=== PATIENT | female | born 1995 | race Caucasian/White ===

== ENCOUNTER 2017-01-26 14:43 | Emergency (ER) | payer BC ==
--- NOTE | 2017-01-26 15:32 | ER Document Report ---
ED Medical Screen (RME) - General Chief Complaint: Chest Pain Stated Complaint: CHEST PAIN Mode of Arrival: Ambulatory Information source: Patient TRAVEL OUTSIDE OF THE [place] IN LAST 30 DAYS: No - HPI Onset: This afternoon Onset/Duration: Sudden Quality of pain: Sharp Severity: Moderate Associated Symptoms: Chest pain, Nausea. denies: Chills, Cough (productive), Cough (nonproductive), Dizzy/lightheaded, Sweating Exacerbated by: Other - Laying back Relieved by: Denies Notes: 01/26/17 15:31 Patient is here with complaints of chest pain. The pain started suddenly this afternoon. It was sharp in nature. Pain is worse when she lays back. The pain was worse with deep breathing but this has since resolved. She denies any medical problems. She is a non-smoker. She is on control and recently had a 7 [address] ride a few days ago. She denies any leg pain or swelling. Lungs are clear and equal at this time. She is in no respiratory distress. Dad has a history of spontaneous pneumothorax with prominent blebs. - Related Data Allergies/Adverse Reactions: No Known Allergies Allergy (Verified 01/26/17 14:50) Past Medical History - Social History Chew tobacco use (# tins/day): No Frequency of alcohol use: None Drug Abuse: None - Past Medical History Cardiac Medical History: Denies: Hx Coronary Artery Disease, Hx Heart Attack, Hx Hypertension Pulmonary Medical History: Denies: Hx Asthma, Hx Bronchitis, Hx COPD, Hx Pneumonia Neurological Medical History: Denies: Hx Cerebrovascular Accident, Hx Seizures Endocrine Medical History: Reports: Hx Hypothyroidism. Denies: Hx Diabetes Mellitus Type 1, Hx Diabetes Mellitus Type 2 Renal/ Medical History: Denies: Hx Peritoneal Dialysis Musculoskeltal Medical History: Denies Hx Arthritis Psychiatric Medical History: Reports: Hx Anxiety, Hx Depression Surgical Hx: Negative Past Surgical History: Denies: Hx Hysterectomy, Hx Pacemaker - Immunizations Immunizations up to date: Yes Hx Diphtheria, Pertussis, Tetanus Vaccination: Yes Physical Exam - Vital signs Vitals: Temp Pulse Resp BP Pulse Ox 98.4 F 74 20 121/63 100 01/26/17 14:51 01/26/17 14:51 01/26/17 14:51 01/26/17 14:51 01/26/17 14:51 Course - Vital Signs Vital signs: Temp Pulse Resp BP Pulse Ox 98.4 F 74 20 121/63 100 01/26/17 14:51 01/26/17 14:51 01/26/17 14:51 01/26/17 14:51 01/26/17 14:51
--- NOTE | 2017-01-26 16:20 | RADIOLOGY REPORT (SQ) ---
EXAM DESCRIPTION: CHEST PA/LAT COMPLETED DATE/TIME: 01/26/2017 4:06 pm REASON FOR STUDY: CP COMPARISON: AP chest 02/24/2012 EXAM PARAMETERS: NUMBER OF VIEWS: two views TECHNIQUE: Digital Frontal and Lateral radiographic views of the chest acquired. RADIATION DOSE: NA LIMITATIONS: none FINDINGS: LUNGS AND PLEURA: No opacities, masses or pneumothorax. No pleural effusion. MEDIASTINUM AND HILAR STRUCTURES: No masses or contour abnormalities. HEART AND VASCULAR STRUCTURES: Heart normal size. No evidence for failure. BONES: No acute findings. HARDWARE: None in the chest. OTHER: No other significant finding. IMPRESSION: NO SIGNIFICANT RADIOGRAPHIC FINDING IN THE CHEST. TECHNICAL DOCUMENTATION: JOB ID: [id number] [employer]- All Rights Reserved
[2017-01-26 17:16] LABS: ABSOLUTE BASOPHILS # (AUTO) 0.1 10^3/uL (0.0-0.2); ABSOLUTE LYMPHOCYTES (AUTO) 2.5 10^3/uL (0.5-4.7); ABSOLUTE MONOCYTES (AUTO) 0.4 10^3/uL (0.1-1.4); ABSOLUTE NEUT (AUTO) 5.4 10^3/uL (1.7-8.2); BASOPHILS % (AUTO) 0.6 % (0-2); EOSINOPHILS % (AUTO) 0.4 % (0-6); HEMATOCRIT 38.9 % (36.0-47.0); HEMOGLOBIN 12.8 g/dL (12.0-15.5); HGB HCT DIFFERENCE -0.5; LYMPHOCYTES % (AUTO) 29.5 % (13-45); MEAN CORPUSCULAR HEMOGLOBIN 27.3 pg (27.0-33.4); MEAN CORPUSCULAR HGB CONC 33.1 g/dL (32.0-36.0); MEAN CORPUSCULAR VOLUME 82 fl (80-97); MONOCYTES % (AUTO) 4.3 % (3-13); RED BLOOD COUNT 4.71 10^6/uL (3.72-5.28); RED CELL DISTRIBUTION WIDTH 13.5 % (11.5-14.0); SEGMENTED NEUTROPHILS % (AUTO) 65.2 % (42-78); WHITE BLOOD COUNT 8.4 10^3/uL (4.0-10.5)
[2017-01-26 17:40] LABS: ALANINE AMINOTRANSFERASE 30 U/L (9-52); ALBUMIN 4.8 g/dL (3.5-5.0); ALKALINE PHOSPHATASE 49 U/L (38-126); ANION GAP 14 (5-19); ASPARTATE AMINO TRANSFERASE 20 U/L (14-36); BILIRUBIN,DIRECT 0.4 mg/dL (0.0-0.4); BILIRUBIN,TOTAL 1.4 mg/dL (0.2-1.3); BLOOD UREA NITROGEN 12 mg/dL (7-20); CALCIUM 10.3 mg/dL (8.4-10.2); CARBON DIOXIDE 24 mmol/L (22-30); CHLORIDE 106 mmol/L (98-107); CREATINE KINASE 116 U/L (30-135); GLUCOSE 74 mg/dL (75-110); POTASSIUM 4.4 mmol/L (3.6-5.0); SODIUM 143.9 mmol/L (137-145); TOTAL PROTEIN 7.9 g/dL (6.3-8.2)
[2017-01-26 17:52] LABS: CREATINE KINASE MB 0.78 ng/mL (<4.55)
[2017-01-26 17:54] LABS: TROPONIN I < 0.012 ng/mL
--- NOTE | 2017-01-26 18:29 | EKG REPORT ---
SEVERITY:- NORMAL ECG - SINUS RHYTHM : Confirmed by: Troy Girard 26-Jan-2017 18:28:13
--- NOTE | 2017-01-26 19:01 | ER Document Report ---
ED Cardiac - General Chief Complaint: Chest Pain Stated Complaint: CHEST PAIN Mode of Arrival: Ambulatory Information source: Patient TRAVEL OUTSIDE OF THE [place] IN LAST 30 DAYS: No - HPI Patient complains to provider of: Chest pain Was the onset of pain: Sudden Is the pain a: New problem Chest pain location: Pleuritic Quality of pain: Constant, Moderate, Sharp Chest pain radiation location: None Severity now: Mild Severity at worst: Moderate Cardiac risk factors: None Positive cardiac history: No Associated symptoms: denies: Abdominal pain, Anxiety, Back pain, Cool extremities, Diaphoresis, Dizziness, Edema, Fatigue, Fever/chills, Nausea/ vomiting, Neck pain, Palpitations, Rash, Shortness of breath Exacerbated by: Deep breaths Relieved by: Rest Notes: Patient arrives with complaints of chest pain. This is a 21-year-old female who is healthy. Started having mid chest pain that was sharp in nature few hours prior to arrival. The patient denies any shortness of breath. She denies any leg pain or leg swelling. Patient denies any hypertension, diabetes , high cholesterol, smoking, drug use, cardiac history, family history. She is on control and recently drove to and from [place]. She denies any history of DVT or PE. Mother has a history of blebs with spontaneous pneumo's. Patient states the pain has resolved some. She denies any fever or cough. No rash. No injury. She denies any abdominal pain. No nausea vomiting diarrhea. She has no other complaints at this time. - Related Data Allergies/Adverse Reactions: No Known Allergies Allergy (Verified 01/26/17 14:50) Past Medical History - General Information source: Patient - Social History Smoking Status: Never Smoker Chew tobacco use (# tins/day): No Frequency of alcohol use: None Drug Abuse: None Family History: Reviewed & Not Pertinent Patient has suicidal ideation: No Patient has homicidal ideation: No - Past Medical History Cardiac Medical History: Denies: Hx Coronary Artery Disease, Hx Heart Attack, Hx Hypertension Pulmonary Medical History: Denies: Hx Asthma, Hx Bronchitis, Hx COPD, Hx Pneumonia Neurological Medical History: Denies: Hx Cerebrovascular Accident, Hx Seizures Endocrine Medical History: Reports: Hx Hypothyroidism. Denies: Hx Diabetes Mellitus Type 1, Hx Diabetes Mellitus Type 2 Renal/ Medical History: Denies: Hx Peritoneal Dialysis Musculoskeltal Medical History: Denies Hx Arthritis Psychiatric Medical History: Reports: Hx Anxiety, Hx Depression Surgical Hx: Negative Past Surgical History: Denies: Hx Hysterectomy, Hx Pacemaker - Immunizations Immunizations up to date: Yes Hx Diphtheria, Pertussis, Tetanus Vaccination: Yes Review of Systems - Review of Systems -: Yes All other systems reviewed and negative Physical Exam - Vital signs Vitals: Temp Pulse Resp BP Pulse Ox 98.4 F 74 20 121/63 100 01/26/17 14:51 01/26/17 14:51 01/26/17 14:51 01/26/17 14:51 01/26/17 14:51 - Notes Notes: GENERAL: alert, cooperative, nontoxic, no distress. HEAD: normocephalic, atraumatic EYES: conjunctiva pink without discharge, no external redness or swelling. EARS: no external swelling, no external redness NOSE: atraumatic, no external swelling MOUTH/THROAT: mucous membranes moist and pink, posterior pharynx without erythema, swelling, exudate. No trismus or drooling. NECK: soft, supple, full range of motion, no meningismus. CHEST: no distress, lungs clear and equal throughout. No wheezing, rales, rhonchi. CARDIAC: regular rate and rhythm, no murmur, normal capillary refill, normal pulses. No peripheral edema noted. ABDOMEN: Soft, nontender. BACK: full range of motion, no CVA tenderness. EXTREMITIES: full range of motion of all extremities. No redness, no swelling. NEURO: alert and oriented x 3, no focal deficits, full range of motion of all extremities. PYSCH: appropriate mood, affect. Patient is cooperative. SKIN: pink, warm, dry, no rash. Course - Re-evaluation Re-evalutation: 01/26/17 19:02 Patient is feeling better at this time. The patient has a heart score of 0 making risk for MACE of 1.7%. Patient had a recent trip is on control but is a non-smoker. She has no leg pain or swelling and no sign of DVT. D- dimer is negative. And this low risk patient with a negative d-dimer, PE is very unlikely. Her symptoms are very atypical for ACS. Initial troponin is negative. EKG shows normal sinus rhythm with no acute ischemic changes. We will repeat a 3 hour troponin, if negative the patient will be discharged home. Chest x-ray shows no acute abnormality including pneumothorax. 01/26/17 20:16 Patient continues to be stable. Repeat troponin remains negative. ACS very unlikely in this patient. Heart score 0. D-dimer negative for PE. Chest x- ray shows no pneumonia or pneumothorax. EKG shows no ischemic changes and no signs of pericarditis. Patient will be discharged home with NSAIDs. Follow-up with her doctor at the next available appointment for recheck. Follow-up sooner for increased pain, fever, difficulty breathing, or any further concerns. 01/26/17 20:18 The patient is noted to have elevated blood pressure during today's emergency department visit. The patient was informed of this finding. The patient was instructed that this may be related to pre-hypertension and requires further evaluation with a primary care provider. The patient has no hypertensive symptoms at this time. The patient's emergency department workup and current diagnosis were explained to the patient and or family. Follow-up instructions were provided. Medications if prescribed were discussed. Instructions for when to return to the emergency department including specific worrisome symptoms were discussed with the patient and/or family. - Vital Signs Vital signs: Temp Pulse Resp BP Pulse Ox 98.4 F 74 20 121/63 100 01/26/17 14:51 01/26/17 14:51 01/26/17 14:51 01/26/17 14:51 01/26/17 14:51 - Laboratory Result Diagrams: 01/26/17 16:45 01/26/17 16:45 Laboratory results interpreted by me: 01/26/17 16:45 Glucose 74 L Calcium 10.3 H Total Bilirubin 1.4 H Discharge - Discharge Clinical Impression: Chest pain Qualifiers: Chest pain type: unspecified Qualified Code(s): R07.9 - Chest pain, unspecified Condition: Stable Disposition: HOME, SELF-CARE Instructions: Chest Pain of Unclear Cause ([facility]), Chest Wall Pain ([facility]) Additional Instructions: Take medications as prescribed. Follow-up with your primary care doctor at the next available appointment for reevaluation. Follow-up sooner or return to the emergency department for worsening pain, difficulty breathing, passing out, high fever, coughing up blood, or any further concerns. Your blood pressure was elevated during today's visit. Have this rechecked with your doctor. Prescriptions: Naproxen [Naprosyn] 500 mg PO BID #20 tablet Forms: Elevated Blood Pressure Referrals: [facility] [Provider Group] - Follow up as needed
[2017-01-26 20:34] VITALS: BP 112/59
== END 2017-01-26 20:33 | disposition home or self-care (01) ==
LOC: ER 14:43
DX: R07.9 Chest pain, unspecified (principal)
CPT/HCPCS: 36415; 71020; 80053; 82550; 82553; 84484; 85025; 85379; 93005; 93010; 99285